=== PATIENT | male | born 1980 | race Caucasian/White ===

== ENCOUNTER 2017-11-22 07:02 | Emergency (ER) | payer OTHER ==
[~2017-11-22] VITALS: Ht 185.4 cm; Wt 79.4 kg
[2017-11-22 07:17] VITALS: BP_SYST 140
[2017-11-22] MEDS ORDERED: traMADol HCL HCL 50 MG TABLET (ULTRAM) PO ONE (07:45)
[2017-11-22 08:30] VITALS: BP_SYST 126
== END 2017-11-22 08:30 | disposition home or self-care (01) ==
LOC: SED 07:02
DX: M25.511 Pain in right shoulder (principal)
CPT/HCPCS: 99282